=== PATIENT | female | born 1980 | race Asian ===

== ENCOUNTER 2023-06-13 10:59 | Outpatient (RCR) | payer BC, SELFPAY | END 2023-06-13 23:59 | disposition home or self-care (01) | LOC: RPT 10:59 | PROVIDERS: ATTENDING PHYSICIAN Family Medicine | DX: R10.2 Pelvic and perineal pain (principal); N39.41 Urge incontinence; N39.3 Stress incontinence (female) (male); Z73.6 Limitation of activities due to disability; M62.81 Muscle weakness (generalized); R27.8 Other lack of coordination | CPT/HCPCS: 97110; 97140; 97530 ==

== ENCOUNTER 2023-07-04 09:59 | Outpatient (RCR) | payer BC, SELFPAY | END 2023-07-04 23:59 | disposition home or self-care (01) | LOC: RPT 09:59 | PROVIDERS: ATTENDING PHYSICIAN Family Medicine | DX: R10.2 Pelvic and perineal pain (principal); N39.41 Urge incontinence; N39.3 Stress incontinence (female) (male); Z73.6 Limitation of activities due to disability; M62.81 Muscle weakness (generalized); R27.8 Other lack of coordination | CPT/HCPCS: 97140; 97530 ==

== ENCOUNTER 2023-08-01 07:16 | Outpatient (RCR) | payer BC, SELFPAY | END 2023-08-01 23:59 | disposition home or self-care (01) | LOC: RPT 07:16 | PROVIDERS: ATTENDING PHYSICIAN Family Medicine | DX: R10.2 Pelvic and perineal pain (principal); N39.41 Urge incontinence; N39.3 Stress incontinence (female) (male); Z73.6 Limitation of activities due to disability; M62.81 Muscle weakness (generalized); R27.8 Other lack of coordination | CPT/HCPCS: 97140; 97530 ==

== ENCOUNTER 2023-08-30 12:01 | Outpatient (RCR) | payer BC, SELFPAY | END 2023-08-30 23:59 | disposition home or self-care (01) | LOC: RPT 12:01 | PROVIDERS: ATTENDING PHYSICIAN Family Medicine | DX: R10.2 Pelvic and perineal pain (principal); N39.41 Urge incontinence; N39.3 Stress incontinence (female) (male); Z73.6 Limitation of activities due to disability; M62.81 Muscle weakness (generalized); R27.8 Other lack of coordination | CPT/HCPCS: 97140; 97530 ==

== ENCOUNTER 2023-10-09 18:39 | Outpatient (RCR) | payer BC, SELFPAY | END 2023-10-09 23:59 | disposition home or self-care (01) | LOC: RPT 18:39 | PROVIDERS: ATTENDING PHYSICIAN Family Medicine | DX: R10.2 Pelvic and perineal pain (principal); N39.41 Urge incontinence; N39.3 Stress incontinence (female) (male); Z73.6 Limitation of activities due to disability; M62.81 Muscle weakness (generalized); R27.8 Other lack of coordination | CPT/HCPCS: 97110; 97140; 97530 ==

== ENCOUNTER 2023-11-14 09:46 | Outpatient (RCR) | payer BC, SELFPAY | END 2023-11-14 23:59 | disposition home or self-care (01) | LOC: RPT 09:46 | PROVIDERS: ATTENDING PHYSICIAN Family Medicine | DX: R10.2 Pelvic and perineal pain (principal); N39.41 Urge incontinence; N39.3 Stress incontinence (female) (male); Z73.6 Limitation of activities due to disability; M62.81 Muscle weakness (generalized); R27.8 Other lack of coordination | CPT/HCPCS: 97110; 97140; 97530 ==

== ENCOUNTER 2023-12-12 09:56 | Outpatient (RCR) | payer BC, SELFPAY | END 2023-12-12 23:59 | disposition home or self-care (01) | LOC: RPT 09:56 | PROVIDERS: ATTENDING PHYSICIAN Family Medicine | DX: R10.2 Pelvic and perineal pain (principal); N39.41 Urge incontinence; N39.3 Stress incontinence (female) (male); Z73.6 Limitation of activities due to disability; M62.81 Muscle weakness (generalized); R27.8 Other lack of coordination | CPT/HCPCS: 97110; 97140; 97530 ==

== ENCOUNTER 2024-01-02 09:59 | Outpatient (RCR) | payer BC, SELFPAY | END 2024-01-02 23:59 | disposition home or self-care (01) | LOC: RPT 09:59 | PROVIDERS: ATTENDING PHYSICIAN Family Medicine | DX: R10.2 Pelvic and perineal pain (principal); N39.41 Urge incontinence; N39.3 Stress incontinence (female) (male); Z73.6 Limitation of activities due to disability; M62.81 Muscle weakness (generalized); R27.8 Other lack of coordination | CPT/HCPCS: 97110; 97140 ==

== ENCOUNTER 2024-01-23 10:08 | Outpatient (RCR) | payer BC, SELFPAY | END 2024-01-23 23:59 | disposition home or self-care (01) | LOC: RPT 10:08 | PROVIDERS: ATTENDING PHYSICIAN Family Medicine | DX: R10.2 Pelvic and perineal pain (principal); N39.41 Urge incontinence; N39.3 Stress incontinence (female) (male); Z73.6 Limitation of activities due to disability; M62.81 Muscle weakness (generalized); R27.8 Other lack of coordination | CPT/HCPCS: 97110; 97140 ==

== ENCOUNTER 2024-03-12 11:01 | Outpatient (RCR) | payer BC, SELFPAY | END 2024-03-12 23:59 | disposition home or self-care (01) | LOC: RPT 11:01 | PROVIDERS: ATTENDING PHYSICIAN Family Medicine | DX: R10.2 Pelvic and perineal pain (principal); N39.41 Urge incontinence; N39.3 Stress incontinence (female) (male); Z73.6 Limitation of activities due to disability; M62.81 Muscle weakness (generalized); R27.8 Other lack of coordination | CPT/HCPCS: 97110; 97140 ==

== ENCOUNTER 2024-04-16 10:00 | Outpatient (RCR) | payer BC, SELFPAY | END 2024-04-16 23:59 | disposition home or self-care (01) | LOC: RPT 10:00 | PROVIDERS: ATTENDING PHYSICIAN Family Medicine | DX: R10.2 Pelvic and perineal pain (principal); N39.41 Urge incontinence; N39.3 Stress incontinence (female) (male); Z73.6 Limitation of activities due to disability; M62.81 Muscle weakness (generalized); R27.8 Other lack of coordination; M25.551 Pain in right hip; M54.50 Low back pain, unspecified | CPT/HCPCS: 97110; 97140 ==

== ENCOUNTER 2024-05-12 09:58 | Outpatient (RCR) | payer BC, SELFPAY | END 2024-05-12 23:59 | disposition home or self-care (01) | LOC: RPT 09:58 | PROVIDERS: ATTENDING PHYSICIAN Family Medicine | DX: R10.2 Pelvic and perineal pain (principal); N39.41 Urge incontinence; N39.3 Stress incontinence (female) (male); Z73.6 Limitation of activities due to disability; M62.81 Muscle weakness (generalized); R27.8 Other lack of coordination | CPT/HCPCS: 97110; 97140 ==

== ENCOUNTER 2024-06-12 10:13 | Outpatient (RCR) | payer BC, SELFPAY | END 2024-06-12 23:59 | disposition home or self-care (01) | LOC: RPT 10:13 | PROVIDERS: ATTENDING PHYSICIAN Family Medicine | DX: R10.2 Pelvic and perineal pain (principal); N39.41 Urge incontinence; N39.3 Stress incontinence (female) (male); Z73.6 Limitation of activities due to disability; M62.81 Muscle weakness (generalized); R27.8 Other lack of coordination | CPT/HCPCS: 97110; 97140 ==

== ENCOUNTER 2024-07-10 10:07 | Outpatient (RCR) | payer BC, SELFPAY | END 2024-07-10 23:59 | disposition home or self-care (01) | LOC: RPT 10:07 | PROVIDERS: ATTENDING PHYSICIAN Family Medicine | DX: R10.2 Pelvic and perineal pain (principal); N39.41 Urge incontinence; N39.3 Stress incontinence (female) (male); Z73.6 Limitation of activities due to disability; M62.81 Muscle weakness (generalized); R27.8 Other lack of coordination | CPT/HCPCS: 97110; 97140 ==

== ENCOUNTER 2024-07-23 10:58 | Outpatient (RCR) | payer BC, SELFPAY | END 2024-07-23 23:59 | disposition home or self-care (01) | LOC: RPT 10:58 | PROVIDERS: ATTENDING PHYSICIAN Family Medicine | DX: R10.2 Pelvic and perineal pain (principal); N39.41 Urge incontinence; N39.3 Stress incontinence (female) (male); Z73.6 Limitation of activities due to disability; M62.81 Muscle weakness (generalized); R27.8 Other lack of coordination; M54.9 Dorsalgia, unspecified; M25.551 Pain in right hip | CPT/HCPCS: 97110; 97140 ==

== ENCOUNTER 2024-09-08 12:07 | Outpatient (RCR) | payer BC, SELFPAY | END 2024-09-08 23:59 | disposition home or self-care (01) | LOC: RPT 12:07 | PROVIDERS: ATTENDING PHYSICIAN Family Medicine | DX: R10.2 Pelvic and perineal pain (principal); N39.41 Urge incontinence; N39.3 Stress incontinence (female) (male); Z73.6 Limitation of activities due to disability; M62.81 Muscle weakness (generalized); R27.8 Other lack of coordination; M54.9 Dorsalgia, unspecified; M25.551 Pain in right hip | CPT/HCPCS: 97110; 97140; 97530 ==

== ENCOUNTER 2024-10-08 09:59 | Outpatient (RCR) | payer BC, SELFPAY | END 2024-10-08 23:59 | disposition home or self-care (01) | LOC: RPT 09:59 | PROVIDERS: ATTENDING PHYSICIAN Family Medicine | DX: R10.2 Pelvic and perineal pain (principal); N39.41 Urge incontinence; N39.3 Stress incontinence (female) (male); Z73.6 Limitation of activities due to disability; M62.81 Muscle weakness (generalized); R27.8 Other lack of coordination; M54.9 Dorsalgia, unspecified; M25.551 Pain in right hip | CPT/HCPCS: 97110; 97140; 97530 ==

== ENCOUNTER 2024-11-13 10:22 | Outpatient (RCR) | payer BC, SELFPAY | END 2024-11-13 23:59 | disposition home or self-care (01) | LOC: RPT 10:22 | PROVIDERS: ATTENDING PHYSICIAN Family Medicine | DX: R10.2 Pelvic and perineal pain (principal); N39.41 Urge incontinence; N39.3 Stress incontinence (female) (male); Z73.6 Limitation of activities due to disability; M62.81 Muscle weakness (generalized); R27.8 Other lack of coordination; M54.9 Dorsalgia, unspecified; M25.551 Pain in right hip | CPT/HCPCS: 97110; 97140; 97530 ==

== ENCOUNTER 2024-12-10 10:05 | Outpatient (RCR) | payer BC, SELFPAY | END 2024-12-10 23:59 | disposition home or self-care (01) | LOC: RPT 10:05 | PROVIDERS: ATTENDING PHYSICIAN Family Medicine | DX: R10.2 Pelvic and perineal pain (principal); N39.41 Urge incontinence; N39.3 Stress incontinence (female) (male); Z73.6 Limitation of activities due to disability; M62.81 Muscle weakness (generalized); R27.8 Other lack of coordination; M54.9 Dorsalgia, unspecified; M25.551 Pain in right hip | CPT/HCPCS: 97110; 97140; 97530 ==

== ENCOUNTER 2025-01-14 13:59 | Outpatient (RCR) | payer BC, SELFPAY | END 2025-01-14 23:59 | disposition home or self-care (01) | LOC: RPT 13:59 | PROVIDERS: ATTENDING PHYSICIAN Family Medicine | DX: R10.2 Pelvic and perineal pain (principal); N39.41 Urge incontinence; N39.3 Stress incontinence (female) (male); Z73.6 Limitation of activities due to disability; M62.81 Muscle weakness (generalized); R27.8 Other lack of coordination; M54.9 Dorsalgia, unspecified; M25.551 Pain in right hip | CPT/HCPCS: 97110; 97140; 97530 ==

== ENCOUNTER 2025-02-11 10:02 | Outpatient (RCR) | payer BC, SELFPAY | END 2025-02-11 23:59 | disposition home or self-care (01) | LOC: RPT 10:02 | PROVIDERS: ATTENDING PHYSICIAN Family Medicine | DX: R10.2 Pelvic and perineal pain (principal); N39.41 Urge incontinence; N39.3 Stress incontinence (female) (male); Z73.6 Limitation of activities due to disability; M62.81 Muscle weakness (generalized); R27.8 Other lack of coordination; M54.9 Dorsalgia, unspecified; M25.551 Pain in right hip | CPT/HCPCS: 97110; 97140; 97530 ==

== ENCOUNTER 2025-03-08 10:07 | Outpatient (RCR) | payer BC, SELFPAY | END 2025-03-08 23:59 | disposition home or self-care (01) | LOC: RPT 10:07 | PROVIDERS: ATTENDING PHYSICIAN Family Medicine | DX: R10.2 Pelvic and perineal pain (principal); N39.41 Urge incontinence; N39.3 Stress incontinence (female) (male); Z73.6 Limitation of activities due to disability; M62.81 Muscle weakness (generalized); R27.8 Other lack of coordination; M54.9 Dorsalgia, unspecified; M25.551 Pain in right hip | CPT/HCPCS: 97110; 97140; 97530 ==

== ENCOUNTER 2025-04-15 10:11 | Outpatient (RCR) | payer BC, SELFPAY | END 2025-04-15 23:59 | disposition home or self-care (01) | LOC: RPT 10:11 | PROVIDERS: ATTENDING PHYSICIAN Family Medicine | DX: R10.2 Pelvic and perineal pain (principal); N39.41 Urge incontinence; N39.3 Stress incontinence (female) (male); Z73.6 Limitation of activities due to disability; M62.81 Muscle weakness (generalized); R27.8 Other lack of coordination; M54.9 Dorsalgia, unspecified; R10.20 Pelvic and perineal pain unspecified side; M25.551 Pain in right hip | CPT/HCPCS: 97140; 97530 ==

== ENCOUNTER 2025-05-06 08:20 | Outpatient (RCR) | payer BC, SELFPAY | END 2025-05-06 23:59 | disposition home or self-care (01) | LOC: RPT 08:20 | PROVIDERS: ATTENDING PHYSICIAN Family Medicine | DX: N39.41 Urge incontinence (principal); R10.2 Pelvic and perineal pain (principal); R10.20 Pelvic and perineal pain unspecified side; N39.3 Stress incontinence (female) (male); Z73.6 Limitation of activities due to disability; M62.81 Muscle weakness (generalized); R27.8 Other lack of coordination; M54.9 Dorsalgia, unspecified; M25.551 Pain in right hip | CPT/HCPCS: 97110; 97140; 97530 ==

== ENCOUNTER 2025-06-15 08:34 | Outpatient (RCR) | payer BC, SELFPAY | END 2025-06-15 23:59 | disposition home or self-care (01) | LOC: RPT 08:34 | PROVIDERS: ATTENDING PHYSICIAN Family Medicine | DX: N39.41 Urge incontinence (principal); N39.3 Stress incontinence (female) (male); R10.20 Pelvic and perineal pain unspecified side; Z73.6 Limitation of activities due to disability; M62.81 Muscle weakness (generalized); R27.8 Other lack of coordination; M54.9 Dorsalgia, unspecified; M25.551 Pain in right hip; R10.2 Pelvic and perineal pain | CPT/HCPCS: 97110; 97140; 97530 ==